=== PATIENT | male | born 1965 | race Caucasian/White ===

== ENCOUNTER 2017-12-16 08:50 | Emergency (ER) | payer OTHER, SELFPAY ==
[2017-12-16 08:54] VITALS: BP 152/96; PULSE 77; RESP 14; TEMP 36.8; O2SAT 96
--- NOTE | 2017-12-16 08:59 | W.ED.GENAD ---
Discharge Plan Disposition Patient Disposition: HOME Condition: Good Discharge Details Chief Complaint: EarProblem Clinical Impression: Acute left otitis media Primary Care Provider: Zeke De Oliveira ED Provider: Jason Conteh Home Meds and New Rx's Prescriptions: New amoxicillin 500 mg tablet 500 mg PO TID 10 Days Qty: 30 RF: 0 Continue allopurinol 100 MG tablet 200 mg PO DAILY 90 Days Qty: 180 RF: 3 disulfiram 250 MG tablet 250 mg PO DAILY 90 Days Qty: 90 RF: 3 Discharge Instructions Instructions: Otitis Media (ED) Medical Decision Making pt has had 7 days of left ear pain ,denies fevers or systemic symptoms. On exam has normal bilateral external mastoid and external auditory canals. Has normal right TM, left TM is red and bulging. Will tx with abx, advised f/u with pcp this week if not improving and return precautions given Differential Diagnosis otitis externa, otitis media HPI General Mode of arrival: ambulatory. Date/Time Provider Initiated Documentation: 12/16/17 08:51. Limitations to Documentation: no limitations. Information obtained by: patient. History of Present Illness 52 year old M presents to the emergency department with the chief complaint of left ear pain, described as moderate, with intensity rated at 5. Quality is described as aching, Patient started experiencing this day(s) (7) and it has been constant. No relieving factors improve symptom(s), No exacerbating factors reported . Patient notes no other symptoms.. Related Data Home Medications Medication Instructions Recorded Confirmed allopurinol 200 mg PO DAILY 90 Days #180 08/15/17 12/16/17 tab-cap disulfiram 250 mg PO DAILY 90 Days #90 tab-cap 08/15/17 12/16/17 amoxicillin 500 mg PO TID 10 Days #30 tab 12/16/17 Previous Rx's Medication Instructions Recorded allopurinol 200 mg PO DAILY 90 Days #180 08/15/17 tab-cap disulfiram 250 mg PO DAILY 90 Days #90 tab-cap 08/15/17 amoxicillin 500 mg PO TID 10 Days #30 tab 12/16/17 Allergies Allergy/AdvReac Type Severity Reaction Status Date / Time No Known Allergies Allergy Unverified 12/16/17 08:57 General Stated Complaint: EarProblem DONNIE: 5 Review of Systems Review of Systems All systems reviewed & are unremarkable except as noted in HPI and below Constitutional Denies chills and Denies fever(s) ENT Denies change in voice Cardiovascular Denies chest pain and Denies dyspnea Respiratory Denies dyspnea Gastrointestinal Denies abdominal pain, Denies nausea and Denies vomiting Genitourinary Denies dysuria Integumentary/Breasts Denies rash PFSH Social History Smoking/Tobacco Use Status: Never Exam Const General: no acute distress Orientation: alert HENMT Head: normal to inspection Ears: external ears normal General nose exam: external nose normal Mouth: moist mucous membranes Eyes General: appearance normal, both eyes and all related structures Neck Neck: normal visual inspection Resp Effort & Inspection: normal respiratory effort and able to speak in complete sentences Cardio Rate: regular rate Skin General skin exam: no rashes or lesions noted Neuro General: alert and oriented x3 Extrem General: normal to inspection Psych Mental Status: mental status grossly normal Course Vital Signs Temperature 36.8 C 12/16/17 08:54 Pulse 77 12/16/17 08:54 Respiratory Rate 14 12/16/17 08:54 Blood Pressure 152/96 H 12/16/17 08:54 Pulse Oximetry 96 12/16/17 08:54 Temperature 36.8 C 12/16/17 08:54 Temperature Source Temporal Artery Scan 12/16/17 08:54 Pulse 77 12/16/17 08:54 Respiratory Rate 14 12/16/17 08:54 Respiratory Effort Non-Labored 12/16/17 08:56 Blood Pressure 152/96 H 12/16/17 08:54 Blood Pressure Position Sitting 12/16/17 08:54 Pulse Oximetry 96 12/16/17 08:54 Oxygen Delivery Method Room Air 12/16/17 08:54 Oxygen Flow Rate 0 12/16/17 08:54 Pain Level 5 12/16/17 08:54
--- NOTE | 2017-12-16 09:02 | ED.GENADUL_ITS ---
Discharge Plan Disposition Patient Disposition: HOME Condition: Good Discharge Details Chief Complaint: EarProblem Clinical Impression: Acute left otitis media Primary Care Provider: Zeke De Oliveira ED Provider: Jason Conteh Home Meds and New Rx's Prescriptions: New amoxicillin 500 mg tablet 500 mg PO TID 10 Days Qty: 30 RF: 0 Continue allopurinol 100 MG tablet 200 mg PO DAILY 90 Days Qty: 180 RF: 3 disulfiram 250 MG tablet 250 mg PO DAILY 90 Days Qty: 90 RF: 3 Discharge Instructions Instructions: Otitis Media (ED) Medical Decision Making pt has had 7 days of left ear pain ,denies fevers or systemic symptoms. On exam has normal bilateral external mastoid and external auditory canals. Has normal right TM, left TM is red and bulging. Will tx with abx, advised f/u with pcp this week if not improving and return precautions given Differential Diagnosis otitis externa, otitis media HPI General Mode of arrival: ambulatory . Date/Time Provider Initiated Documentation: 12/16/17 08:51 . Limitations to Documentation: no limitations . Information obtained by: patient . History of Present Illness 52 year old M presents to the emergency department with the chief complaint of left ear pain, described as moderate, with intensity rated at 5. Quality is described as aching, Patient started experiencing this day(s) (7) and it has been constant. No relieving factors improve symptom(s), No exacerbating factors reported . Patient notes no other symptoms.. Related Data Home Medications Medication Instructions Recorded Confirmed allopurinol 200 mg PO DAILY 90 Days #180 08/15/17 12/16/17 tab-cap disulfiram 250 mg PO DAILY 90 Days #90 tab-cap 08/15/17 12/16/17 amoxicillin 500 mg PO TID 10 Days #30 tab 12/16/17 Previous Rx's Medication Instructions Recorded allopurinol 200 mg PO DAILY 90 Days #180 08/15/17 tab-cap disulfiram 250 mg PO DAILY 90 Days #90 tab-cap 08/15/17 amoxicillin 500 mg PO TID 10 Days #30 tab 12/16/17 Allergies Allergy/AdvReac Type Severity Reaction Status Date / Time No Known Allergies Allergy Unverified 12/16/17 08:57 General Stated Complaint: EarProblem DONNIE: 5 Review of Systems Review of Systems All systems reviewed & are unremarkable except as noted in HPI and below Constitutional Denies chills and Denies fever(s) ENT Denies change in voice Cardiovascular Denies chest pain and Denies dyspnea Respiratory Denies dyspnea Gastrointestinal Denies abdominal pain, Denies nausea and Denies vomiting Genitourinary Denies dysuria Integumentary/Breasts Denies rash PFSH Social History Smoking/Tobacco Use Status: Never Exam Const General: no acute distress Orientation: alert HENMT Head: normal to inspection Ears: external ears normal General nose exam: external nose normal Mouth: moist mucous membranes Eyes General: appearance normal, both eyes and all related structures Neck Neck: normal visual inspection Resp Effort & Inspection: normal respiratory effort and able to speak in complete sentences Cardio Rate: regular rate Skin General skin exam: no rashes or lesions noted Neuro General: alert and oriented x3 Extrem General: normal to inspection Psych Mental Status: mental status grossly normal Course Vital Signs Temperature 36.8 C 12/16/17 08:54 Pulse 77 12/16/17 08:54 Respiratory Rate 14 12/16/17 08:54 Blood Pressure 152/96 H 12/16/17 08:54 Pulse Oximetry 96 12/16/17 08:54 Temperature 36.8 C 12/16/17 08:54 Temperature Source Temporal Artery Scan 12/16/17 08:54 Pulse 77 12/16/17 08:54 Respiratory Rate 14 12/16/17 08:54 Respiratory Effort Non-Labored 12/16/17 08:56 Blood Pressure 152/96 H 12/16/17 08:54 Blood Pressure Position Sitting 12/16/17 08:54 Pulse Oximetry 96 12/16/17 08:54 Oxygen Delivery Method Room Air 12/16/17 08:54 Oxygen Flow Rate 0 12/16/17 08:54 Pain Level 5 12/16/17 08:54
== END 2017-12-16 09:06 | disposition home or self-care (01) ==
PROVIDERS: Emergency Provider Emergency Medicine; PCP Family Medicine
DX: H66.92 Otitis media, unspecified, left ear (principal)
CPT/HCPCS: 99283

== ENCOUNTER 2018-01-22 14:11 | Emergency (ER) | payer OTHER, SELFPAY ==
[2018-01-22] VITALS (18 sets, daily range): BP systolic 91–141; BP diastolic 77–85; PULSE 60–75; RESP 12–18; TEMP 36.6–36.7; O2SAT 95–98
--- NOTE | 2018-01-22 14:31 | W.ED.GENAD ---
Discharge Plan Disposition Patient Disposition: HOME Condition: Stable Discharge Details Chief Complaint: GenMedical Clinical Impression: Palpitations Primary Care Provider: Zeke De Oliveira ED Provider: Jason Conteh Home Meds and New Rx's Prescriptions: Continued ciprofloxacin-dexamethasone 0.3-0.1 % drops,suspension 4 drp otic (ear) Q12H Qty: 7.5 RF: 0 amoxicillin-pot clavulanate 875-125 mg tablet 1 tab PO Q12H Qty: 14 RF: 0 allopurinol 100 MG tablet 200 mg PO DAILY 90 Days Qty: 180 RF: 3 disulfiram 250 MG tablet 250 mg PO DAILY 90 Days Qty: 90 RF: 3 Discharge Instructions Instructions: Palpitations (ED) Additional Instructions: your lab work and ekg did not show any concerning findings. I have placed you on our follow up list to see a primary care provider sooner if you have worsening symptoms, chest pain/pressure or difficulty breathing return to the emergency department Medical Decision Making 52 yo former smoker comes in with cc of palpitations feeling as though his heart is pounding primarily at night with some associated shortness of breath. Denies any symptoms now, never had any chest pain or pressure. Symptoms started a week ago and has never had before. Denies fevers, travel, srugeries, no lower extremity swelling or calf pain. No tachycardia or hypoxia to suggest PE. HEART score is 2, will obtain troponin. No tearing back pain and normal fascular exam so doubt dissection at this time pt remains stable, lab work is unremarkable. No symptoms here and normal tele. Will send home on zio patch and have him f/u with pcp, return precautions given Differential Diagnosis afib, nstemi, electrolyte abnormality Lab Data Lab results reviewed: Yes I reviewed the patient's lab results. ECG Data Attestation: I personally reviewed and interpreted this ECG (s) as follows: Prior ECG tracings: not available for review Interpretation: sinus rhythm rate of 74, pr 162, qtc 419 HPI General Mode of arrival: ambulatory. Date/Time Provider Initiated Documentation: 01/22/18 14:20. Limitations to Documentation: no limitations. Information obtained by: patient. History of Present Illness 52 year old M presents to the emergency department with the chief complaint of palpitations, described as moderate, with intensity rated at 3. Patient started experiencing this week(s) (1) and it has been intermittent. No relieving factors improve symptom(s), No exacerbating factors reported . Patient did receive the following treatments prior to arrival, none Related Data Home Medications Medication Instructions Recorded Confirmed allopurinol 200 mg PO DAILY 90 Days #180 08/15/17 12/25/17 tab-cap disulfiram 250 mg PO DAILY 90 Days #90 tab-cap 08/15/17 12/25/17 amoxicillin 875 mg-potassium 1 tab PO Q12H #14 tab 12/19/17 12/19/17 clavulanate 125 mg tablet ciprofloxacin 0.3 %-dexamethasone 4 drp OTIC (EAR) Q12H #7.5 ml 12/25/17 12/25/17 0.1 % ear drops,suspension Previous Rx's Medication Instructions Recorded allopurinol 200 mg PO DAILY 90 Days #180 08/15/17 tab-cap disulfiram 250 mg PO DAILY 90 Days #90 tab-cap 08/15/17 amoxicillin 875 mg-potassium 1 tab PO Q12H #14 tab 12/19/17 clavulanate 125 mg tablet ciprofloxacin 0.3 %-dexamethasone 4 drp OTIC (EAR) Q12H #7.5 ml 12/25/17 0.1 % ear drops,suspension Allergies Allergy/AdvReac Type Severity Reaction Status Date / Time No Known Allergies Allergy Unverified 12/25/17 14:37 General Stated Complaint: GenMedical DONNIE: 3 Review of Systems Review of Systems All systems reviewed & are unremarkable except as noted in HPI and below Constitutional Denies chills, Denies fever(s) and Denies weakness Cardiovascular Denies chest pain Gastrointestinal Denies abdominal pain, Denies nausea and Denies vomiting Musculoskeletal Denies joint swelling Integumentary/Breasts Denies rash Neurologic Denies weakness Psychiatric Denies depression [facility] Social History Smoking/Tobacco Use Status: Never Exam Const General: no acute distress Orientation: alert [facility] Head: normal to inspection Ears: external ears normal General nose exam: external nose normal Mouth: moist mucous membranes Eyes General: appearance normal, both eyes and all related structures Neck Neck: normal visual inspection Resp Effort & Inspection: normal respiratory effort and able to speak in complete sentences Cardio Rate: regular rate Skin General skin exam: no rashes or lesions noted Neuro General: alert and oriented x3 Extrem General: normal to inspection Psych Mental Status: mental status grossly normal Course Vital Signs Temperature 36.6 C 01/22/18 14:23 Pulse 74 01/22/18 14:23 Respiratory Rate 16 01/22/18 14:23 Blood Pressure 141/85 H 01/22/18 14:23 Pulse Oximetry 95 01/22/18 14:23 Temperature 36.6 C 01/22/18 14:23 Temperature Source Skin 01/22/18 14:23 Pulse 74 01/22/18 14:23 Respiratory Rate 16 01/22/18 14:23 Blood Pressure 141/85 H 01/22/18 14:23 Blood Pressure Position Sitting 01/22/18 14:23 Pulse Oximetry 95 01/22/18 14:23 Oxygen Delivery Method Room Air 01/22/18 14:23 Oxygen Flow Rate 0 01/22/18 14:23 Pain Level 0 01/22/18 14:23
--- NOTE | 2018-01-22 14:34 | ED.GENADUL_ITS ---
Discharge Plan Disposition Patient Disposition: HOME Condition: Stable Discharge Details Chief Complaint: GenMedical Clinical Impression: Palpitations Primary Care Provider: Zeke De Oliveira ED Provider: Jason Conteh Home Meds and New Rx's Prescriptions: Continued ciprofloxacin-dexamethasone 0.3-0.1 % drops,suspension 4 drp otic (ear) Q12H Qty: 7.5 RF: 0 amoxicillin-pot clavulanate 875-125 mg tablet 1 tab PO Q12H Qty: 14 RF: 0 allopurinol 100 MG tablet 200 mg PO DAILY 90 Days Qty: 180 RF: 3 disulfiram 250 MG tablet 250 mg PO DAILY 90 Days Qty: 90 RF: 3 Discharge Instructions Instructions: Palpitations (ED) Additional Instructions: your lab work and ekg did not show any concerning findings. I have placed you on our follow up list to see a primary care provider sooner if you have worsening symptoms, chest pain/pressure or difficulty breathing return to the emergency department Medical Decision Making 52 yo former smoker comes in with cc of palpitations feeling as though his heart is pounding primarily at night with some associated shortness of breath. Denies any symptoms now, never had any chest pain or pressure. Symptoms started a week ago and has never had before. Denies fevers, travel, srugeries, no lower extremity swelling or calf pain. No tachycardia or hypoxia to suggest PE. HEART score is 2, will obtain troponin. No tearing back pain and normal fascular exam so doubt dissection at this time pt remains stable, lab work is unremarkable. No symptoms here and normal tele. Will send home on zio patch and have him f/u with pcp, return precautions given Differential Diagnosis afib, nstemi, electrolyte abnormality Lab Data Lab results reviewed: Yes I reviewed the patient's lab results. ECG Data Attestation: I personally reviewed and interpreted this ECG (s) as follows: Prior ECG tracings: not available for review Interpretation: sinus rhythm rate of 74, pr 162, qtc 419 HPI General Mode of arrival: ambulatory . Date/Time Provider Initiated Documentation: 01/22/18 14:20 . Limitations to Documentation: no limitations . Information obtained by: patient . History of Present Illness 52 year old M presents to the emergency department with the chief complaint of palpitations, described as moderate, with intensity rated at 3. Patient started experiencing this week(s) (1) and it has been intermittent. No relieving factors improve symptom(s), No exacerbating factors reported . Patient did receive the following treatments prior to arrival, none Related Data Home Medications Medication Instructions Recorded Confirmed allopurinol 200 mg PO DAILY 90 Days #180 08/15/17 12/25/17 tab-cap disulfiram 250 mg PO DAILY 90 Days #90 tab-cap 08/15/17 12/25/17 amoxicillin 875 mg-potassium 1 tab PO Q12H #14 tab 12/19/17 12/19/17 clavulanate 125 mg tablet ciprofloxacin 0.3 %-dexamethasone 4 drp OTIC (EAR) Q12H #7.5 ml 12/25/17 12/25/17 0.1 % ear drops,suspension Previous Rx's Medication Instructions Recorded allopurinol 200 mg PO DAILY 90 Days #180 08/15/17 tab-cap disulfiram 250 mg PO DAILY 90 Days #90 tab-cap 08/15/17 amoxicillin 875 mg-potassium 1 tab PO Q12H #14 tab 12/19/17 clavulanate 125 mg tablet ciprofloxacin 0.3 %-dexamethasone 4 drp OTIC (EAR) Q12H #7.5 ml 12/25/17 0.1 % ear drops,suspension Allergies Allergy/AdvReac Type Severity Reaction Status Date / Time No Known Allergies Allergy Unverified 12/25/17 14:37 General Stated Complaint: GenMedical DONNIE: 3 Review of Systems Review of Systems All systems reviewed & are unremarkable except as noted in HPI and below Constitutional Denies chills, Denies fever(s) and Denies weakness Cardiovascular Denies chest pain Gastrointestinal Denies abdominal pain, Denies nausea and Denies vomiting Musculoskeletal Denies joint swelling Integumentary/Breasts Denies rash Neurologic Denies weakness Psychiatric Denies depression [facility] Social History Smoking/Tobacco Use Status: Never Exam Const General: no acute distress Orientation: alert [facility] Head: normal to inspection Ears: external ears normal General nose exam: external nose normal Mouth: moist mucous membranes Eyes General: appearance normal, both eyes and all related structures Neck Neck: normal visual inspection Resp Effort & Inspection: normal respiratory effort and able to speak in complete sentences Cardio Rate: regular rate Skin General skin exam: no rashes or lesions noted Neuro General: alert and oriented x3 Extrem General: normal to inspection Psych Mental Status: mental status grossly normal Course Vital Signs Temperature 36.6 C 01/22/18 14:23 Pulse 74 01/22/18 14:23 Respiratory Rate 16 01/22/18 14:23 Blood Pressure 141/85 H 01/22/18 14:23 Pulse Oximetry 95 01/22/18 14:23 Temperature 36.6 C 01/22/18 14:23 Temperature Source Skin 01/22/18 14:23 Pulse 74 01/22/18 14:23 Respiratory Rate 16 01/22/18 14:23 Blood Pressure 141/85 H 01/22/18 14:23 Blood Pressure Position Sitting 01/22/18 14:23 Pulse Oximetry 95 01/22/18 14:23 Oxygen Delivery Method Room Air 01/22/18 14:23 Oxygen Flow Rate 0 01/22/18 14:23 Pain Level 0 01/22/18 14:23
[2018-01-22 14:49] LABS: Abs Immature Grans 0.01 k/cumm (0.0-0.09); Absolute Basophil Count 0.02 k/cumm (0.0-0.2); Absolute Eosinophil Count 0.14 k/cumm (0.0-0.7); Absolute Lymphocyte Count 2.58 k/cumm (1.2-3.4); Absolute Monocyte Count 0.61 k/cumm (0.11-0.7); Absolute Neutrophil Count 3.54 k/cumm (1.2-6.7); Basophils % 0.3; HGB 14.9 g/dL (13.5-17.5); Immature Grans % 0.1; Lymphocytes % 37.4; Mean Corp. HGB Concentration 33.1 g/dL (32.0-36.0); Mean Corpuscular Hemoglobin 29.5 pg (27.0-33.0); Mean Corpuscular Volume 89.1 fL (80-95); Mean Platelet Volume 9.4 fL (8.0-11.0); Monocytes % 8.8; Neutrophils % 51.4; Platelet Count 207 x1000/uL (130-400); RBC 5.05 m/cumm (4.50-6.00)
[2018-01-22 15:04] LABS: ALT 45 U/L (12-78); AST 20 U/L (15-37); Albumin 3.8 g/dL (3.4-5.0); Alkaline Phosphatase 45 U/L (46-116); Anion Gap 12.4 mmol/L (3-11); BUN 15 mg/dL (7-18); Bilirubin, Total 0.3 mg/dL (0.2-1.0); CO2 25.6 mmol/L (21.0-32.0); CREATININE 1.05 mg/dL (0.70-1.30); Calcium 8.8 mg/dL (8.5-10.1); Chloride 104 mmol/L (98-107); Glucose 113 mg/dL (70-100); Potassium 3.9 mmol/L (3.5-5.1); Sodium 142 mmol/L (136-145); Troponin I < 0.02 ng/mL (0.00-0.06)
--- NOTE | 2018-02-08 09:55 | ZIOP_ITS ---
DATE OF DICTATION: February 08, 2018 INDICATION: Palpitations. ANALYSIS TIME: 9 days and 5 hours. Predominant underlying rhythm is sinus rhythm. Average heart rate 81 bpm. Minimum heart rate 43 bpm. Maximum heart rate 144 bpm. No ventricular ectopy. No non-sustained VT. Rare isolated atrial ectopy. No atrial fibrillation or SVT. No significant pauses of bradyarrhythmias. Four patient-triggered events correspond to sinus rhythm with PAC's. Three diary entries with symptoms such as skipped/irregular beats correspond to sinus rhythm twice. Episode of shortness of breath and pounding correspond to sinus rhythm with atrial ectopy.
== END 2018-01-22 15:57 | disposition home or self-care (01) ==
PROVIDERS: Emergency Provider Emergency Medicine; PCP Family Medicine
DX: R00.2 Palpitations (principal)
CPT/HCPCS: 36415; 80053; 93005; 93225; 99284; 84484; 85025; 93010

== ENCOUNTER 2018-03-25 10:43 | Outpatient (CLI) | payer OTHER, SELFPAY ==
[2018-03-25 11:41] LABS: Hemoglobin A1C 5.6 % (4.5-6.2)
[2018-03-25 12:20] LABS: ALT 32 U/L (12-78); AST 16 U/L (15-37); Albumin 3.9 g/dL (3.4-5.0); Alkaline Phosphatase 43 U/L (46-116); Anion Gap 10.5 mmol/L (3-11); BUN 18 mg/dL (7-18); Bilirubin, Total 0.4 mg/dL (0.2-1.0); CO2 26.5 mmol/L (21.0-32.0); CREATININE 1.01 mg/dL (0.70-1.30); Calcium 8.9 mg/dL (8.5-10.1); Chloride 106 mmol/L (98-107); Glucose 99 mg/dL (70-100); Sodium 143 mmol/L (136-145)
[2018-03-25 12:51] LABS: HCT 45.9 % (40.0-50.0); HGB 15.2 g/dL (13.5-17.5); Mean Corp. HGB Concentration 33.1 g/dL (32.0-36.0); Mean Corpuscular Hemoglobin 29.7 pg (27.0-33.0); Mean Corpuscular Volume 89.6 fL (80-95); Mean Platelet Volume 10.8 fL (8.0-11.0); Platelet Count 188 x1000/uL (130-400); RBC 5.12 m/cumm (4.50-6.00); RBC Distribution Width 13.1 % (11.8-14.1); White Blood Cell Count 5.12 k/cumm (4.4-10.8)
[2018-03-26 09:07] LABS: Hepatitis C Ab w Rflx HCV PCR Reactive (NEGAT)
[2018-03-27 15:16] LABS: HCV RNA Detection Quantitative Undetected IU/mL (UNDECT)
== END 2018-03-25 11:03 ==
PROVIDERS: PCP Family Medicine; Visit Provider Family Medicine
DX: B19.20 Unspecified viral hepatitis C without hepatic coma (principal); K21.9 Gastro-esophageal reflux disease without esophagitis; G47.33 Obstructive sleep apnea (adult) (pediatric); R73.03 Prediabetes; R73.09 Other abnormal glucose; B18.2 Chronic viral hepatitis C; Z87.898 Personal history of other specified conditions
CPT/HCPCS: 36415; 80053; 85027; 86803; 83036; 87522

== ENCOUNTER 2019-11-25 10:29 | Outpatient (CLI) | payer OTHER, SELFPAY ==
--- NOTE | 2019-11-25 07:15 | DI.RAD_ITS ---
EXAM: XR KNEE LT 3V AP,LAT,MORTEZA CLINICAL HISTORY: left knee pain,M25.562. TECHNIQUE: 2D digital imaging was performed. COMPARISON: No exams were available for comparison FINDINGS: BONES: No acute fracture is present. No bony destructive lesion is seen. JOINTS: The knee is normally aligned. No joint effusion is seen. There are no significant degenerati ve changes. SOFT TISSUE: Normal. IMPRESSION: Normal radiographs of the left knee. DATA REPOSITORY: RADIATION DOSE DELIVERED:
== END 2019-11-25 10:49 ==
PROVIDERS: PCP Family Medicine; Visit Provider Nurse Practitioner Family
DX: M25.562 Pain in left knee (principal)
CPT/HCPCS: 73562

== ENCOUNTER 2020-03-22 19:19 | Emergency (ER) | payer OTHER, SELFPAY ==
[2020-03-22 19:24] VITALS: BP 146/105; PULSE 97; RESP 15; TEMP 36.4; O2SAT 96
--- NOTE | 2020-03-22 19:42 | W.ED.GENAD ---
Discharge Plan Disposition Patient Disposition: HOME Condition: Good Discharge Details Clinical Impression: Cellulitis of knee, left Primary Care Provider: Zeke De Oliveira ED Provider: Sixto Kan Home Meds and New Rx's Prescriptions: New clindamycin HCl 150 mg capsule 450 mg PO TID 10 Days Qty: 90 RF: 0 Continued allopurinol 100 mg tablet 200 mg PO DAILY 90 Days Qty: 180 RF: 3 disulfiram 250 mg tablet 250 mg PO DAILY Qty: 90 RF: 0 Discharge Instructions Instructions: Clindamycin (By mouth), Cellulitis (ED) Additional Instructions: At this time you do have cellulitis on the skin over your knee and there does not seem to be any evidence of infection in your knee. These are obviously very close together, so if at any point you notice worsening pain in your knee, spreading of the redness, continued fever or chills, please return immediately for reassessment at this this may demonstrate evidence of infection in the knee itself. Please take the antibiotic as directed, make sure that you are taking it with a yogurt with live cultures to help prevent any diarrhea. If you notice any worsening of your symptoms, or any new symptoms such as vomiting, diarrhea, fever, chills, shortness of breath, chest pain, numbness, weakness, or fainting , please return immediately to the emergency department for reevaluation. Please follow up with your primary care provider as soon as possible for reassessment and reevaluation. As always, it was a pleasure participating in your medical care today. Referrals: Zeke De Oliveira [Primary Care Provider] - Discharge Data Discharge Date/Time-TO BE ENTERED AT DEPARTURE: 03/22/20 21:55 Medical Decision Making 54-year-old male with past medical history of gout, obesity, hypertension, reflux, presents today for evaluation of left knee pain. Patient states that 3 days ago he felt that there was a small infected hair on his left knee, he plucks the hair, and tried to squeeze it but nothing came out. Last 24 to 48 hours he has noticed redness, pain in the skin, and mild pain with movement of the knee. He feels that the pain is more localized to the skin and not in the knee itself. He states his did note a fever at home of 100.1. He is afebrile here. He denies any trauma to the knee. He denies any injury to the knee recently. He denies any cough, chest pain, shortness of breath, numbness tingling or weakness otherwise. No other complaints at this time. Exam demonstrates erythema around the anterior aspect of the knee just proximal to the patella extending down to the proximal component of the osman. There appears to be a central infected hair follicle there. No drainage or discharge. The redness is certainly not circumferential at all. No significant pain with movement of the knee itself, the pain seems to be localized from superficial skin itself. Bedside ultrasound shows no evidence of loculated fluid collection on the anterior skin. With the patient potential subjective fever at home, there is concern for potential systemic infection. Clinically symptoms do not appear consistent with a septic joint at this time, no history of trauma. No indication for imaging. We will place a superficial needle aspiration in the anterior compartment of the knee where the follicle lives, will also attempt a joint aspiration to evaluate for infection. 7:50 PM Anterior superficial skin aspiration was performed, after incision sterile technique with an 18-gauge needle there was a small amount of blood but no evidence of purulent material at all. No evidence of abscess. Lateral joint aspiration technique was performed under sterile technique as well, however on initial attempt no fluid was obtained, repeat attempt was made with a change in angulation and on repeat attempt there was also no significant fluid obtained. On palpation of the knee itself there is no significant edema, or evidence of fluctuance at all at this time in regards to the joint itself. Will not attempt joint aspiration again as it appears to be no amount of significant fluid collection in the knee itself currently. 10 PM Laboratory work-up has returned, minimal white count of 13, no bandemia. Lactate unremarkable at 1.5, electrolytes normal. CRP elevated at 5.62. ESR is a send out secondary to the machine being down. After fluids, and an IV dose of clindamycin and Toradol the patient is feeling much better. He ambulates well without any limp at all. Symptoms at this time appear inconsistent with a septic joint and involvement with the knee joint itself, and and instead are consistent with superficial cellulitis. Patient has normal heart rate, remains afebrile, blood pressure normal. Currently he does not show evidence of systemic sepsis or a septic joint. Patient stable for discharge. Will give clindamycin to go and a prescription for clindamycin at home. I spent a long time discussing with both the patient and his importance of close monitoring of the redness, as well as signs or symptoms that would be indicative of an infected joint if these do occur. Able demonstrate verbal understanding. I have extensively reviewed the treatment plan and discharge instructions with the patient and their family. I have addressed all patient concerns at this time. The patient and family was made aware of what symptoms to monitor for that would warrant a return to the emergency department. Discussed the plan with the patient and family, they demonstrate verbal understanding and agreement with our assessment and plan at this time. The documentation in this chart was dictated using [employer] dictation software. Please excuse any dictation errors. HPI General Date/Time Provider Initiated Documentation: 03/22/20 19:20. HPI Narrative: 54-year-old male with past medical history of gout, obesity, hypertension, reflux, presents today for evaluation of left knee pain. Patient states that 3 days ago he felt that there was a small infected hair on his left knee, he plucks the hair, and tried to squeeze it but nothing came out. Last 24 to 48 hours he has noticed redness, pain in the skin, and mild pain with movement of the knee. He feels that the pain is more localized to the skin and not in the knee itself. He states his did note a fever at home of 100.1. He is afebrile here. He denies any trauma to the knee. He denies any injury to the knee recently. He denies any cough, chest pain, shortness of breath, numbness tingling or weakness otherwise. No other complaints at this time. Related Data Home Medications Medication Instructions Recorded Confirmed allopurinol 100 mg tablet 200 mg PO DAILY 90 Days #180 12/30/19 03/22/20 tab-cap disulfiram 250 mg tablet 250 mg PO DAILY #90 tab-cap 12/31/19 03/22/20 clindamycin HCl 450 mg PO TID 10 Days #90 cap 03/22/20 Previous Rx's Medication Instructions Recorded allopurinol 100 mg tablet 200 mg PO DAILY 90 Days #180 12/30/19 tab-cap disulfiram 250 mg tablet 250 mg PO DAILY #90 tab-cap 12/31/19 clindamycin HCl 450 mg PO TID 10 Days #90 cap 03/22/20 Allergies Allergy/AdvReac Type Severity Reaction Status Date / Time No Known Allergies Allergy Unverified 11/18/19 10:42 General Stated Complaint: Orthopedic DONNIE: 3 Review of Systems All systems reviewed & are unremarkable except as noted in HPI and below PFSH Medical History Bilateral foot pain Essential hypertension 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 Social History Smoking/Tobacco Use Status: Never Smoking risk assessment performed?: Yes Alcohol Intake: current Alcohol Intake frequency: a few times a week Alcohol type: beer Drug use: Never Substance use type: does not use Caregiver/Support person: No Household members: spouse Housing: house Communication Needs: Hard of Hearing Do you need help understanding health information?: Never Pets and animals: Yes Pets and animals: cat(s) and dog(s) Sexually active: Yes Current gender identity: male What is your relationship status?: How often do you talk on the phone with friends or family?: decline to answer How often do you get together with friends or relatives?: decline to answer How often do you attend sabianism or christianity services?: decline to answer Do you belong to any clubs or organized social groups?: no Panel score (0-1 are the most socially isolated patients): 1 What type of physical activity do you participate in: other Duration: decline to answer Frequency: decline to answer Nanette/Zoroastrianism: No preference Special nanette needs: No Seatbelt use: always Helmet use: Yes Helmet use: always Drive intox or ride w/intox bus van driver: No Do you feel safe in your relationship?: Yes Exam Narrative Exam Narrative: 1.Const: Well-nourished, Well-developed, appearing stated age 2.Eyes: PERRL, no conjunctival injection, and symmetrical lids. 3.ENT: Atraumatic external nose and ears. Moist MM. Neck: Symmetric, trachea midline, No thyromegaly. 4.CVS: +S1/S2, No murmurs or gallops. Peripheral pulses 2+ and equal in all extremities. Brisk capillary refill in all extremities. 5.RESP: Unlabored respiratory effort. Clear to auscultation bilaterally. No wheezes rales or rhonchi 6.GI: Soft, Nontender/Nondistended, No hepatosplenomegaly. No guarding or rebound. 7.MSK: Normocephalic/Atraumatic, Extremities w/o deformity. No cyanosis or clubbing, Normal movement of all extremities. 8.Skin: Warm, Dry. Patient's left knee demonstrates a single loculated lesion which appears to be a small previously infected hair follicle, slight erythema extending around this with mild induration and firmness. No fluctuance. Radius is about 4 cm with mild extent down the anterior tibia but on the superficial skin. No calf tenderness, swelling or edema. the redness does not travel circumferentially. No significant pain on actual movement of the knee or pain in the knee joint. No swelling in the posterior aspect of the knee. No crepitus. No pain out of proportion with movement of the knee. 9.Neuro: broadcast technician II-XII grossly intact. Sensation grossly intact, no focal neurologic deficits. 10.Psych: (AAO) x3. Appropriate mood and affect Course Vital Signs Vital signs: Vital Signs Temperature 36.4 C L 03/22/20 19:24 Pulse 97 H 03/22/20 19:24 Respiratory Rate 15 03/22/20 19:24 Blood Pressure 146/105 H 03/22/20 19:24 Pulse Oximetry 96 03/22/20 19:24 Temperature 36.4 C L 03/22/20 19:24 Temperature Source Tympanic 03/22/20 19:24 Pulse 97 H 03/22/20 19:24 Respiratory Rate 15 03/22/20 19:24 Respiratory Effort Non-Labored 03/22/20 19:24 Blood Pressure 146/105 H 03/22/20 19:24 Blood Pressure Position Sitting 03/22/20 19:24 Pulse Oximetry 96 03/22/20 19:24 Oxygen Delivery Method Room Air 03/22/20 19:24 Oxygen Flow Rate 0 03/22/20 19:24 Pain Level 2 03/22/20 19:29 Lab/Test Results Lab/Test Results: 03/22/20 19:40 Blood Blood Culture - Pending 03/22/20 19:40 Blood Blood Culture - Pending Procedures Joint Aspiration/Injection Joint Asp./Inject. 1: Time Out Performed: Yes Side of body: left Joint Aspirated: knee Ultrasound Guidance: No Skin Prep: sterile prep and drape Local Anesthetic: other anesthetic Needle Size Used: 22G Patient Tolerated Procedure: well Complications: other (no fluid collected)
[2020-03-22 20:07] LABS: Abs Immature Grans 0.03 10^3/uL (0.0-0.06); Absolute Basophil Count 0.07 10^3/uL (0.0-0.2); Absolute Eosinophil Count 0.09 10^3/uL (0.0-0.7); Absolute Lymphocyte Count 2.42 10^3/uL (1.2-3.4); Absolute Monocyte Count 1.07 10^3/uL (0.1-0.8); Absolute Neutrophil Count 9.84 10^3/uL (1.2-6.7); Basophils % 0.5; Eosinophils % 0.7; HCT 47.3 % (40.0-50.0); HGB 15.5 g/dL (13.5-17.5); Immature Grans % 0.2; Lymphocytes % 17.9; MCH 29.2 pg (27.0-33.0); MCHC 32.8 % (32.0-36.0); MCV 89.2 fL (80-95); MPV 9.5 fL (8.0-11.0); Monocytes % 7.9; Neutrophils % 72.8; Nucleated RBC 0 %; Platelet Count 238 10^3/uL (130-400); RDW 13.2 % (11.8-14.1); RDW-SD 43.2 fL; WBC 13.52 10^3/uL (4.4-10.8)
[2020-03-22] MEDS: Normal Saline 1,000 ML 1000 ML IV (20:08)
[2020-03-22] MEDS: CLINDAMYCIN 600 MG/50 ML BAG 100 MG IVPB (20:08)
[2020-03-22 20:10] VITALS: PULSE 92; O2SAT 96
[2020-03-22 20:10] LABS: Lactate 1.5 mmol/L (0.6-1.4)
[2020-03-22 20:23] LABS: C-Reactive Protein 5.62 mg/dL (0.0-0.3)
[2020-03-22 20:27] LABS: ALT 36 U/L (16-63); AST 15 U/L (15-37); Alkaline Phosphatase 54 U/L (46-116); Anion Gap 11.6 mmol/L (3-11); BUN 17 mg/dL (7-18); Bilirubin, Total 0.6 mg/dL (0.2-1.0); CO2 27.4 mmol/L (21.0-32.0); CREATININE 1.4 mg/dL (0.70-1.30); Calcium 9.2 mg/dL (8.5-10.1); Chloride 103 mmol/L (98-107); Estimated GFR 53.01 (mL/min/1.73m2); Glucose 123 mg/dL (74-106); Potassium 4.3 mmol/L (3.5-5.1); Sodium 142 mmol/L (136-145); Total Protein 7.7 g/dL (6.4-8.2)
[2020-03-22 21:05] VITALS: BP 146/80; PULSE 87; RESP 16; O2SAT 96
[2020-03-22] MEDS: Ketorolac 30 MG/ML VIAL IVP (21:05)
--- NOTE | 2020-03-22 21:58 | NUR.NOTE ---
Nursing Note: Dr Kan outlines pt's redness to left knee with date.
[2020-03-22] MEDS: Clindamycin 150 MG CAP, 12 CAPS/BTL 450 MG PO (22:07)
[2020-03-23 15:42] LABS: ESR 23 mm/hr (<or=20)
== END 2020-03-22 22:13 | disposition home or self-care (01) ==
PROVIDERS: Emergency Provider Student in an Organized Health Care Education/Training Program; PCP Family Medicine
DX: L03.116 Cellulitis of left lower limb (principal); I10 Essential (primary) hypertension
CPT/HCPCS: 20610; 80053; 85652; 87040; 96361; 96365; 96375; 99284; 83605; 85025; 86140; J1885

== ENCOUNTER 2020-03-24 18:59 | Emergency (ER) | payer OTHER, SELFPAY ==
[2020-03-24 19:03] VITALS: BP 151/98; PULSE 95; RESP 18; TEMP 36.3; O2SAT 98
--- NOTE | 2020-03-24 19:17 | ED.GENADUL_ITS ---
Discharge Plan Disposition Patient Disposition: HOME Condition: Improving Discharge Details Clinical Impression: Cellulitis of knee, left Primary Care Provider: Zeke De Oliveira ED Provider: Leeanna Leavitt Home Meds and New Rx's Prescriptions: Continued allopurinol 100 mg tablet 200 mg PO DAILY 90 Days Qty: 180 RF: 3 disulfiram 250 mg tablet 250 mg PO DAILY Qty: 90 RF: 0 clindamycin HCl 150 mg capsule 450 mg PO TID 10 Days Qty: 90 RF: 0 ibuprofen 200 mg Tablet 200 mg PO PRN PRNRF: 0 Discharge Instructions Instructions: Cellulitis (ED) Additional Instructions: Your labs are improving. The redness seems to be shrinking compared to where you are marked before. Again, there is no evidence to suggest an infection in the joint. Please take the clindamycin as prescribed. Please make sure that you are taking 450 mg of the clindamycin 3 times per day for total of 10 days. This will be 3 of the 150 mg capsules at a time. Please follow-up with primary care in 2 days for reevaluation. If you develop fever/chills, increased pain, increased swelling or other new/worsening symptoms please seek care urgently once again. Referrals: Zeke De Oliveira [Primary Care Provider] - Medical Decision Making Patient with 54-year-old gentleman presenting today for reevaluation of the cellulitis which was diagnosed in his left knee. Patient was seen here 2 days ago at which time he was started on clindamycin. Patient's been taking this appropriately. He was prescribed to taking 4 and 50 mg 3 times daily from unclear if he has been taking 1 or 3 tabs during each dose. He was noted to have an inflamed follicle over the superior aspect of the patella which was opened and drained without any purulent discharge. Multiple attempts were made at joint aspiration but no fluid was able to be collected. He states THAT he did experience some night sweats. No documented fever. States he is feeling well otherwise. He comes in today for increase comfort and reports that he has pain which is starting to walk. He states he wants the discomfort his pain does improve. However, if he is overly active the pain will increase once again. On exam patient appears nontoxic. His left knee has a focal area of erythema and swelling over the superior aspect of the knee. Dr. Kan had previously marked out the area of cellulitis and comparatively, it does appear to have clindamycin works quite well and the borders of the cellulitis has been receding. No appreciated drainage. No evidence to suggest an abscess. He does continue to have the cellulitis as previously mentioned. Full extension. Flexion is limited to approximately 90 degrees secondary to discomfort over the patella. Aside from the Patient's pain increasing and is increased difficulty with ambulation, his cellulitis appears clinically improved. Further, with his increased pain and do feel that repeat blood work would be appropriate. I did question him if the swelling is new from 2 days ago or persistent. He is unable to answer this question. If this is a concern, I do feel that repeat aspiration would be appropriate. Discussed the risk/benefits as well as expected procedural steps associated with aspiration. Voices understanding and wishes to proceed. Once again, the procedure was detailed as a dry tap. Patient is tolerated this well and it was performed in standard sterile technique. This was well away from the border of the cellulitis. Labs reviewed. Lactate remains stable. WBC is significantly downtrending from 2 days ago. CRP is also improving. Patient did have a bump in his creatinine when he was here last time, for this he was given 500 cc bolus. His creatinine does appear back to his baseline. I discussed this with the patient. He does not have any evidence at this point to suggest a infected knee joint. Rather, I feel that the continuation of his cellulitis. It does appear to be responding well to clindamycin. Again, I am not clear if the patient has been taking the have prescribed and I did discuss dosing more clearly with him. Return precautions were discussed. Advised to follow-up with primary care in 2 days for reevaluation. Strict return precautio ns were discussed. Encourage rest and elevation of his leg. Advised ibuprofen to help discomfort. All of his questions and concerns were addressed and he is in agreement this plan. HPI General Mode of arrival: ambulatory . Date/Time Provider Initiated Documentation: 03/24/20 19:15 . Limitations to Documentation: no limitations . Information obtained by: patient, RN notes reviewed and old records reviewed . History of Present Illness 54 year old M presents to the emergency department with the chief complaint of left knee pain, described as moderate, with intensity rated at 4. Quality is described as aching, and is localized to the left and lower extremity. Patient reports no radiation. Patient started experiencing this day(s) and it has been constant. Immobilization improves symptom(s), Movement worsens symptoms . Patient notes diaphoresis; denies fever/chills, loss of appetite and nausea/vomiting. Patient did receive the f ollowing treatments prior to arrival, other (clindamycin) Related Data Home Medications Medication Instructions Recorded Confirmed allopurinol 100 mg tablet 200 mg PO DAILY 90 Days #180 12/30/19 03/24/20 tab-cap disulfiram 250 mg tablet 250 mg PO DAILY #90 tab-cap 12/31/19 03/24/20 clindamycin HCl 450 mg PO TID 10 Days #90 cap 03/22/20 03/24/20 ibuprofen 200 mg PO PRN PRN 03/24/20 03/24/20 Previous Rx's Medication Instructions Recorded allopurinol 100 mg tablet 200 mg PO DAILY 90 Days #180 12/30/19 tab-cap disulfiram 250 mg tablet 250 mg PO DAILY #90 tab-cap 12/31/19 clindamycin HCl 450 mg PO TID 10 Days #90 cap 03/22/20 Allergies Allergy/AdvReac Type Severity Reaction Status Date / Time No Known Allergies Allergy Unverified 11/18/19 10:42 General Stated Complaint: Cellulitis DONNIE: 3 Review of Systems Constitutional Constitutional: Reports as per HPI, Denies chills, Denies fever(s), Denies headache(s), Reports night sweats and Denies weakness ENT Ears, Nose, Mouth, and Throat: Denies headache(s) Cardiovascular Cardiovascular: Reports as per HPI Respiratory Respiratory: Reports as per HPI Musculoskeletal Musculoskeletal: Reports as per HPI and Denies tingling Integumentary/Breasts Skin/Breast: Reports as per HPI, Reports erythema, Reports skin pain and Reports skin swelling Neurologic Neurologic: Reports as per HPI, Denies headache(s), Denies tingling, Denies paresthesias and Denies weakness [facility] Medical History Bilateral foot pain Essential hypertension ALEXANDRA (generalized anxiety disorder) WITH MIXED DEPRESSION Gastroesophageal reflux disease Gout LEFT SIDE History of alcohol abuse REPORTED 02/25/18 - DISULFIRAM IN THE WINTER & LIBERTARIAN IN THE SUMMER, LAST ALCHOL 5 MONTHS AGO Insomnia Nephrolithiasis LEFT SIDED 3 mm SEEN ON U/S 08/20/15 Obesity XOCHITL (obstructive sleep apnea) Patellofemoral disorder of left knee (08/15/17) 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 Social History Smoking/Tobacco Use Status: Never Smoking risk assessment performed?: Yes Alcohol Intake: current Alcohol Intake frequency: a few times a week Alcohol type: beer Drug use: Never Substance use type: does not use Caregiver/Support person: No Household members: spouse Housing: house Communication Needs: Hard of Hearing Do you need help understanding health information?: Never Pets and animals: Yes Pets and animals: cat(s) and dog(s) Sexually active: Yes Current gender identity: male What is your relationship status?: How often do you talk on the phone with friends or family?: decline to answer How often do you get together with friends or relatives?: decline to answer How often do you attend religion or sabianist services?: decline to answer Do you belong to any clubs or organized social groups?: no Panel score (0-1 are the most socially isolated patients): 1 What type of physical activity do you participate in: other Duration: decline to answer Frequency: decline to answer Nanette/Jew: No preference Special nanette needs: No Seatbelt use: always Helmet use: Yes Helmet use: always Drive intox or ride w/intox taxi cab driver: No Do you feel safe in your relationship?: Yes Exam Const General: cooperative, healthy appearing, comfortable, no acute distress, well developed and well groomed Nutritional Appearance: well nourished and obese Orientation: alert and awake Resp Effort & Inspection: normal respiratory effort, able to speak in complete sentences and no respiratory distress Cardio Rate: regular rate Rhythm: regular rhythm Skin General skin exam: erythema (as below) Neuro General: patient alert and patient awake Cognition: normal cognition Speech: speech normal Gait: normal gait Motor: muscle tone normal throughout Sensory Exam: no sensory deficits noted Extrem Knee images: 1. localized area of erythema. Warm to the touch. Much less than the previously outlined area, particularly distal to the area noted. Area of swelling noted across the top of the knee. Area of previously drained hair follicle was concerning for source of infection is tender but no fluctuation or induration. Psych Appearance: grossly normal and well kempt Mental Status: mental status grossly normal Speech and Movement: speech and movement normal Course Vital Signs Vital signs: Vital Signs Temperature 36.3 C L 03/24/20 19:03 Pulse 95 H 03/24/20 19:03 Respiratory Rate 18 03/24/20 19:03 Blood Pressure 151/98 H 03/24/20 19:03 Pulse Oximetry 98 03/24/20 19:03 Temperature 36.3 C L 03/24/20 19:03 Temperature Source Temporal Artery Scan 03/24/20 19:03 Pulse 95 H 03/24/20 19:03 Respiratory Rate 18 03/24/20 19:03 Blood Pressure 151/98 H 03/24/20 19:03 Blood Pressure Position Sitting 03/24/20 19:03 Pulse Oximetry 98 03/24/20 19:03 Oxygen Delivery Method Room Air 03/24/20 19:03 Oxygen Flow Rate 0 03/24/20 19:03 Pain Level 4 03/24/20 19:03 Procedures Joint Aspiration/Injection Joint Asp./Inject. 1: Time Out Performed: Yes Side of body: left Joint Aspirated: knee Ultrasound Guidance: No Skin Prep: sterile prep and drape Needle Size Used: 18G Total fluid obtained (mL): 0 Patient Tolerated Procedure: well and no complications Complications: none
--- NOTE | 2020-03-24 19:28 | NUR.NOTE ---
Nursing Note: elopement entered in error. libl
[2020-03-24 19:47] LABS: Lactate 1.5 mmol/L (0.6-1.4)
[2020-03-24 20:04] LABS: Abs Immature Grans 0.03 10^3/uL (0.0-0.06); Absolute Basophil Count 0.04 10^3/uL (0.0-0.2); Absolute Lymphocyte Count 2.33 10^3/uL (1.2-3.4); Absolute Monocyte Count 0.83 10^3/uL (0.1-0.8); Absolute Neutrophil Count 6.66 10^3/uL (1.2-6.7); Basophils % 0.4; HCT 42.9 % (40.0-50.0); Immature Grans % 0.3; Lymphocytes % 23.1; MCH 29.5 pg (27.0-33.0); MCHC 32.6 % (32.0-36.0); MCV 90.5 fL (80-95); MPV 9.5 fL (8.0-11.0); Monocytes % 8.2; Nucleated RBC 0 %; Platelet Count 234 10^3/uL (130-400); RBC 4.74 10^6/uL (4.36-5.78); RDW 13.2 % (11.8-14.1); RDW-SD 44.4 fL; WBC 10.09 10^3/uL (4.4-10.8)
[2020-03-24] MEDS: Normal Saline 500 ML 999 ML IV (20:08)
[2020-03-24 20:17] LABS: ALT 34 U/L (16-63); AST 14 U/L (15-37); Albumin 3.7 g/dL (3.4-5.0); Alkaline Phosphatase 56 U/L (46-116); Anion Gap 10.7 mmol/L (3-11); BUN 18 mg/dL (7-18); Bilirubin, Total 0.2 mg/dL (0.2-1.0); C-Reactive Protein 5.42 mg/dL (0.0-0.3); CO2 26.3 mmol/L (21.0-32.0); CREATININE 1.2 mg/dL (0.70-1.30); Chloride 106 mmol/L (98-107); Glucose 128 mg/dL (74-106); Potassium 4.3 mmol/L (3.5-5.1); Sodium 143 mmol/L (136-145); Total Protein 7.5 g/dL (6.4-8.2)
[2020-03-24 20:56] VITALS: BP 137/86; PULSE 80; RESP 16; TEMP 36.7; O2SAT 96
== END 2020-03-24 20:55 | disposition home or self-care (01) ==
PROVIDERS: Emergency Provider Physician Assistant; PCP Family Medicine
DX: L03.116 Cellulitis of left lower limb (principal); I10 Essential (primary) hypertension
CPT/HCPCS: 20610; 80053; 96360; 99284; 83605; 85025; 86140; 99283

== ENCOUNTER 2020-04-22 02:58 | Outpatient (CLI) | payer OTHER, SELFPAY ==
[2020-04-22 14:51] LABS: Calculated LDL 79 mg/dL (<100); Cholesterol 151 mg/dL (<200); HDL Cholesterol 56 mg/dL (40-60); Hemoglobin A1C 5.9 % (<5.7); Triglyceride 82 mg/dL (<150)
[2020-04-22 21:50] LABS: PSA, Screening 0.2 ng/mL (0.0-3.5)
== END 2020-04-22 02:59 | disposition home or self-care (01) ==
LOC: LBO 02:58
PROVIDERS: PCP Nurse Practitioner Family; Visit Provider Nurse Practitioner Family
DX: Z00.00 Encounter for general adult medical examination without abnormal findings (principal); E78.5 Hyperlipidemia, unspecified; Z12.5 Encounter for screening for malignant neoplasm of prostate
CPT/HCPCS: 36415; 80061; 84153; 83036

== ENCOUNTER 2020-07-19 01:20 | Outpatient (CLI) | payer OTHER, SELFPAY ==
--- NOTE | 2020-07-19 08:00 | DI.RAD_ITS ---
Exam(s) XR WRIST RT COMPL NAVICULAR EXAM: XR WRIST RT COMPL NAVICULAR CLINICAL HISTORY: Right lateral wrist pain x 5mo,M25.531. TECHNIQUE: 2D digital imaging was performed. COMPARISON: No exams were available for comparison FINDINGS: There is no evidence of fracture or dislocation. Scaphoid view is unremarkable. No significant ulna r variance. Bone density is normal. IMPRESSION: DATA REPOSITORY: RADIATION DOSE DELIVERED:
== END 2020-07-19 01:40 ==
PROVIDERS: PCP Nurse Practitioner Family; Visit Provider Nurse Practitioner Family
DX: M25.531 Pain in right wrist (principal)
CPT/HCPCS: 73110

== ENCOUNTER 2020-11-19 01:08 | Outpatient (CLI) | payer OTHER, SELFPAY ==
[2020-11-19 12:41] LABS: HCT 46.2 % (40.0-50.0); HGB 14.6 g/dL (13.5-17.5); MCH 29.6 pg (27.0-33.0); MCHC 31.6 % (32.0-36.0); MCV 93.7 fL (80-95); MPV 10.1 fL (8.0-11.0); Platelet Count 224 10^3/uL (130-400); RBC 4.93 10^6/uL (4.36-5.78); RDW 12.8 % (11.8-14.1); WBC 6.21 10^3/uL (4.4-10.8)
[2020-11-19 12:58] LABS: Hemoglobin A1C 5.8 % (<5.7)
[2020-11-19 13:01] LABS: ALT 41 U/L (16-63); AST 19 U/L (15-37); Albumin 4.1 g/dL (3.4-5.0); Alkaline Phosphatase 53 U/L (46-116); Anion Gap 5.9 mmol/L (3-11); BUN 19 mg/dL (7-18); Bilirubin, Total 0.3 mg/dL (0.2-1.0); CO2 30.1 mmol/L (21.0-32.0); CREATININE 1.2 mg/dL (0.70-1.30); Calcium 8.6 mg/dL (8.5-10.1); Chloride 107 mmol/L (98-107); Glucose 96 mg/dL (74-106); Potassium 4.9 mmol/L (3.5-5.1); Sodium 143 mmol/L (136-145); TSH (W/Ref FT4) 1.05 uIU/mL (0.36-3.74); Total Protein 7.1 g/dL (6.4-8.2); Uric Acid 6.4 mg/dL (3.5-7.2)
== END 2020-11-19 01:09 | disposition home or self-care (01) ==
LOC: LOS 01:08
PROVIDERS: PCP Nurse Practitioner Family; Visit Provider Family Medicine
DX: I10 Essential (primary) hypertension; M10.9 Gout, unspecified; R73.03 Prediabetes; M54.2 Cervicalgia
CPT/HCPCS: 36415; 80053; 85027; 83036; 84443; 84550

== ENCOUNTER 2021-01-15 13:55 | Emergency (ER) | payer OTHER, SELFPAY ==
[2021-01-15] VITALS (9 sets, daily range): BP systolic 107–121; BP diastolic 67–86; PULSE 64–85; RESP 11–20; TEMP 36.7; O2SAT 93–97
--- NOTE | 2021-01-15 14:00 | RT.EKG_ITS ---
APPROVED REPORT Exam: Resting ECG Reason for Exam: diaphoretic Patient Location: E HR:82 bpm ECG Measurements Heart Rate 82 AXIS ME 144 P 66 QRSd 97 QRS 101 QT 362 T 27 QTc 424 Conclusion Sinus rhythm...normal P axis, V-rate 60- 99 Right axis deviation...QRS axis (100,269)
--- NOTE | 2021-01-15 14:30 | DI.CT_ITS ---
Exam(s) CT HEAD WO EXAM: CT HEAD WO CLINICAL HISTORY: Headache. TECHNIQUE: Imaging Protocol: Axial computed tomography images with coronal and sagittal reformatted images were created and reviewed COMPARISON: No exams were available for comparison FINDINGS: Ventricles and Extra axial spaces: Normal in size and morphology for the patient's age. Hemorrhage: None. Cerebral parenchyma: Normal. Note is made of a partially empty sella. Midline shift: None. Brainstem/Cerebellum: Normal. Calvarium: Normal. Visualized Paranasal sinuses/Mastoids: There is mucosal thickening bilaterally in the sphenoid, ethmo id air cells and maxillary sinuses. The mastoid air cells are clear. No air-fluid levels are seen. Soft Tissues: Unremarkable. IMPRESSION: 1. No acute intracranial process. 2. Findings of paranasal sinusitis. No air-fluid levels. RADIATION DOSE DELIVERED: 751.8mGy.cm Total DLP DATA REPOSITORY: All CT scans at this facility are submitted to the National Radiology Data Registry (NRDR) Dose Index Registry (DIR) with the [employer] (A[employer]). RADIATION OPTIMIZATION: All CT scans at this facility use at least one of these dose optimization te chniques: automated exposure control; mA and/or kV adjustment per patient size (includes targeted exa ms where dose is matched to clinical indication); or iterative reconstruction.
--- NOTE | 2021-01-15 14:33 | DI.RAD_ITS ---
Exam(s) XR CHEST 1V IN DI DEPT EXAM: XR CHEST 1V IN DI DEPT CLINICAL HISTORY: Cough, fever TECHNIQUE: 2D digital imaging was performed of the chest. One image was obtained. An AP view was ob tained. COMPARISON: No exams were available for comparison FINDINGS: MEDIASTINUM: Normal. HEART: Normal. PULMONARY VASCULATURE: Normal. LUNGS: Clear. There is a rounded opacity overlying the right 8th rib which may represent a nipple sha malinda. PLEURAL SPACE: No pleural effusion or pneumothorax. BONE:Within normal limits for the patient's age. OTHER FINDINGS:Normal. IMPRESSION: 1. No acute pulmonary findings. 2. Rounded opacity overlying the right 8th rib which may represent a nipple shadow. A repeat frontal view of the chest with nipple markers is recommended. Incidental Findings DATA REPOSITORY: RADIATION DOSE DELIVERED:
--- NOTE | 2021-01-15 14:37 | ED.GENADUL_ITS ---
Discharge Plan Disposition Patient Disposition: HOME Condition: Improving Discharge Details Chief Complaint: RespSymp Clinical Impression: COVID-19 Primary Care Provider: Lorie Salazar ED Provider: Jerald Stubbs Home Meds and New Rx's Prescriptions: Continued escitalopram oxalate 20 mg tablet 20 mg PO DAILY Qty: 90 RF: 4 allopurinol 100 mg tablet 200 mg PO DAILY 90 Days Qty: 180 RF: 3 ypqhzpxln-DUP-RM-acetaminophen 7.5-60-30-1,000 mg/30 mL Liquid RF: 0 No Action disulfiram 250 mg tablet 250 mg PO DAILY PRNRF: 0 Discharge Instructions Instructions: COVID-19 (Coronavirus Disease 2019) (ED), COVID-19: Slow the Coronavirus Spread (ED) Additional Instructions: Continue small, frequent sips of fluids to maintain hydration. You are being discharged with a pulse oximeter. You may use this to check your home levels of oxygen. This should be performed in a warm room at rest. Observe reading for 30 to 60 seconds to identify the most common measurement. Return to see regular doctor if your resting oxygenation drops below 90% and is continued with separate reading 10 minutes later. Tylenol and/or ibuprofen as needed for aches, pains or fever. You may benefit from vitamin D3 2000 international units daily, vitamin C 1 g twice a day, zinc 220 mg/day. Return to the ER for any concerns. Medical Decision Making This is a 55-year-old male who presents from home with 5 to 6 days of dry cough, subjective fever and chills, generalized malaise and weakness. He also endorses mild headache and sinus pressure. He is vital signs are normal and exam is reassuring. Broad differential diagnosis considered including viral syndrome, dehydration, pneumonitis, sinusitis. Patient had screening laboratories, chest x-ray, COVID-19 test, CT scan of the head performed. Patient given Tylenol and fluids. Diagnostics: Chemistries show reassuring electrolytes, BUN 19 creatinine 1.2. White blood cell count 7, hematocrit 47, platelets 191. COVID-19 PCR positive. Chest x-ray no airspace consolidation or acute disease. CT scan of the head without acute intracranial findings. Consistent with viral syndrome, COVID-19. Discussed home management with the patient. We will provide him with a pulse oximeter. He is stable and appropriate for discharge. HPI General Mode of arrival: ambulatory . Date/Time Provider Initiated Documentation: 01/15/21 13:57 . Limitations to Documentation: no limitations . Information obtained by: patient . History of Present Illness 55 year old M presents to the emergency department with the chief complaint of Cough, fever, chills, described as mild and moderate, Quality is described as dull, and is localized to the chest. Patient reports no radiation. Patient started experiencing this day(s) and it has been intermittent. No relieving factors improve symptom(s), No exacerbating factors reported . Patient notes cough, diaphoresis, fever/chills, headaches, loss of appetite and malaise; denies chest pain, shortness of breath and syncope. Patient did receive the following treatments prior to arrival, none Related Data Home Medications Medication Instructions Recorded Confirmed allopurinol 100 mg tablet 200 mg PO DAILY 90 Days #180 12/30/19 01/15/21 tab-cap disulfiram 250 mg tablet 250 mg PO DAILY PRN tab-cap 04/09/20 01/15/21 escitalopram oxalate 20 mg tablet 20 mg PO DAILY #90 tab 04/09/20 01/15/21 [id number]-NKJ-FU-acetaminophen ml 01/15/21 Previous Rx's Medication Instructions Recorded allopurinol 100 mg tablet 200 mg PO DAILY 90 Days #180 12/30/19 tab-cap escitalopram oxalate 20 mg tablet 20 mg PO DAILY #90 tab 04/09/20 Allergies Allergy/AdvReac Type Severity Reaction Status Date / Time No Known Allergies Allergy Unverified 01/15/21 14:07 General Stated Complaint: RespSymp DONNIE: 3 Review of Systems Narrative: See HPI. 8 systems reviewed and otherwise negative PFSH All Active Problems (Updated 01/15/21 @ 15:54 by Jerald Stubbs MD) COVID-19 (Acute) Prediabetes (Chronic) XOCHITL (obstructive sleep apnea) (Chronic) Essential hypertension (Chronic) Major depressive disorder (Chronic) Generalized anxiety disorder (Chronic) Gastroesophageal reflux disease (Chronic) Insomnia (Chronic) Gout (Chronic) Obesity (Chronic) History of alcohol abuse (Chronic) Sensorineural hearing loss of both ears (Chronic) Medical History Alcohol use disorder Hyperlipidemia Nephrolithiasis Viral hepatitis C Successfully treated with Interferon Surgical History S/P colonoscopy Family History Mother Lupus (systemic lupus erythematosus) Father , in his 60s from some type of aneurysm Aneurysm Sister Lupus (systemic lupus erythematosus) Daughter Multiple sclerosis Maternal Grandfather No problems noted. Maternal Grandmother No problems noted. Paternal Grandfather No problems noted. Paternal Grandmother No problems noted. Social History Smoking/Tobacco Use Status: Former Tobacco Use tobacco type: cigarettes Quit Date: 02/05/99 Pack-years: 57 Tobacco: How many years used: 20 Smoking risk assessment performed?: Yes Alcohol Intake: former Drug use: Never Substance use type: does not use Caregiver/Support person: No Household members: spouse Housing: house Communication Needs: Hard of Hearing Do you need help understanding health information?: Never Pets and animals: Yes Pets and animals: cat(s) and dog(s) Sexually active: Yes Current gender identity: male What is your relationship status?: How often do you talk on the phone with friends or family?: decline to answer How often do you get together with friends or relatives?: decline to answer How often do you attend jain or scientology services?: decline to answer Do you belong to any clubs or organized social groups?: no Panel score (0-1 are the most socially isolated patients): 1 What type of physical activity do you participate in: other Duration: decline to answer Frequency: decline to answer Nanette/Roman Catholic: No preference Special nanette needs: No Seatbelt use: always Helmet use: Yes Helmet use: always Drive 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 Pleasant, well groomed, interactive. HEAD: Normocephalic, atraumatic ENT: Mucous membranes moist, oropharynx unremarkable, External ear exam unremarkable EYES: PERRL, EOMI NECK: Full ROM, no ARPIT, no menigismus CHEST/RESP: Nontender, clear to auscultation bilateral, no wheeze/rhonchi/rales CARDIOVASCULAR: RRR, no murmur, rub irena. 2+ Rad pulse bilateral ABDOMEN: Soft, nontender, no mass. +Bowel sounds EXT: Full ROM, no edema, no rash Neuro: Grossly normal neurologic exam, conversant, interactive. Psych: Speech fluent, thoughts congruent, affect normal Course Vital Signs Vital signs: Vital Signs Temperature 36.7 C 01/15/21 14:03 Pulse 85 01/15/21 14:03 Respiratory Rate 18 01/15/21 14:03 Blood Pressure 121/86 01/15/21 14:03 Pulse Oximetry 97 01/15/21 14:03 Temperature 36.7 C 01/15/21 14:03 Temperature Source Temporal Artery Scan 01/15/21 14:03 Pulse 85 01/15/21 14:03 Respiratory Rate 18 01/15/21 14:03 Respiratory Effort 01/15/21 14:09 Blood Pressure 121/86 01/15/21 14:03 Blood Pressure Position Sitting 01/15/21 14:03 Pulse Oximetry 97 01/15/21 14:03 Oxygen Delivery Method Room Air 01/15/21 14:03 Oxygen Flow Rate 0 01/15/21 14:03 Pain Level 1 01/15/21 14:03
[2021-01-15] MEDS: Normal Saline 1,000 ML 1000 ML IV (14:51)
[2021-01-15 15:06] LABS: Source Nasal/Nares
[2021-01-15 15:09] LABS: ALT 27 U/L (16-63); AST 18 U/L (15-37); Albumin 3.9 g/dL (3.4-5.0); Alkaline Phosphatase 42 U/L (46-116); Anion Gap 11.6 mmol/L (3-11); BUN 19 mg/dL (7-18); Bilirubin, Total 0.3 mg/dL (0.2-1.0); CO2 25.4 mmol/L (21.0-32.0); CREATININE 1.2 mg/dL (0.70-1.30); Calcium 9.2 mg/dL (8.5-10.1); Chloride 101 mmol/L (98-107); Glucose 111 mg/dL (74-106); Potassium 4.1 mmol/L (3.5-5.1); Sodium 138 mmol/L (136-145); Total Protein 7.8 g/dL (6.4-8.2)
[2021-01-15 15:50] LABS: Abs Immature Grans 0.01 10^3/uL (0.0-0.06); Absolute Basophil Count 0.02 10^3/uL (0.0-0.2); Absolute Eosinophil Count 0.02 10^3/uL (0.0-0.7); Absolute Lymphocyte Count 1.12 10^3/uL (1.2-3.4); Absolute Neutrophil Count 5.46 10^3/uL (1.2-6.7); Basophils % 0.3; Eosinophils % 0.3; HCT 47.6 % (40.0-50.0); HGB 15.5 g/dL (13.5-17.5); Immature Grans % 0.1; Lymphocytes % 15.3; MCH 29.5 pg (27.0-33.0); MCHC 32.6 % (32.0-36.0); MCV 90.7 fL (80-95); MPV 9.6 fL (8.0-11.0); Monocytes % 9.5; Neutrophils % 74.5; Nucleated RBC 0 %; Platelet Count 191 10^3/uL (130-400); RBC 5.25 10^6/uL (4.36-5.78); RDW 12.9 % (11.8-14.1); RDW-SD 43.1 fL; WBC 7.33 10^3/uL (4.4-10.8)
[2021-01-15 15:51] LABS: COVID-19 PCR POSITIVE (Negative)
--- NOTE | 2021-01-15 16:15 | DI.VRAD_ITS ---
PROCEDURE INFORMATION: Exam: CT Head Without Contrast Exam date and time: 01/15/2021 2:42 PM Age: 55 years old Clinical indication: Pain; Headache TECHNIQUE: Imaging protocol: Computed tomography of the head without contrast. COMPARISON: No relevant prior studies available. FINDINGS: Brain: Normal. No hemorrhage. Unremarkable white matter. No mass effect. Cerebral ventricles: No ventriculomegaly. Paranasal sinuses: Multifocal mucosal thickening in the sphenoidal , bilateral anterior and right posterior ethmoidal air cells. Mild mucosal thickening in the bilateral maxillary sinuses. Mastoid air cells: Mastoid air cells are clear. Bones/joints: Unremarkable. No acute fracture. Soft tissues: Unremarkable. Other findings: There is a partial empty sella. IMPRESSION: No acute intracranial abnormality. Dictated and Authenticated by: Meek Yepez MD. Ordering:YOLANDA Marques MD
--- NOTE | 2021-01-15 16:38 | DI.VRAD_ITS ---
PROCEDURE INFORMATION: Exam: XR Chest Exam date and time: 01/15/2021 3:56 PM Age: 55 years old Clinical indication: Cough TECHNIQUE: Imaging protocol: XR of the chest. Views: 1 view. COMPARISON: No relevant prior studies available. FINDINGS: Lungs: No consolidation. Pleural spaces: No pleural effusion. No pneumothorax. Heart/Mediastinum: No cardiomegaly. Bones/joints: Unremarkable. IMPRESSION: No acute findings. Dictated and Authenticated by: Meek Yepez MD. Ordering:YOLANDA Marques MD
== END 2021-01-15 17:39 | disposition home or self-care (01) ==
PROVIDERS: Emergency Provider Emergency Medicine; PCP Nurse Practitioner Family
DX: U07.1 COVID-19 (principal); R61 Generalized hyperhidrosis; R05.1 Acute cough; R50.9 Fever, unspecified; R51.9 Headache, unspecified
CPT/HCPCS: 36415; 80053; 87635; 93005; 96360; 99284; 70450; 71045; 85025; 93010

== ENCOUNTER 2021-01-22 09:18 | Emergency (ER) | payer OTHER, SELFPAY ==
[2021-01-22 09:24] VITALS: BP 138/83; PULSE 75; RESP 16; TEMP 36.6; O2SAT 97
--- NOTE | 2021-01-22 09:41 | ED.GENADUL_ITS ---
Discharge Plan Disposition Patient Disposition: HOME Condition: Stable Discharge Details Clinical Impression: Cellulitis of knee, right Primary Care Provider: Lorie Salazar ED Provider: Nilesh Stark Home Meds and New Rx's Prescriptions: New clindamycin HCl 150 mg capsule 450 mg PO TID 10 Days Qty: 90 RF: 0 Continued disulfiram 250 mg tablet 250 mg PO PRN PRNRF: 0 [id number]-KDJ-LK-acetaminophen 7.5-60-30-1,000 mg/30 mL Liquid RF: 0 allopurinol 100 mg tablet 200 mg PO HS RF: 0 escitalopram oxalate 20 mg tablet 20 mg PO HS RF: 0 Discharge Instructions Instructions: Cellulitis (ED) Additional Instructions: Tetanus status was updated today. It would appear as though you were developing a localized mild cellulitis. Clindamycin as directed. Rest, elevate, warm compresses every 2 hours for 20 minutes. Please watch for new or worsening symptoms and return to the ER for any concerns. Lastly, I recommend reaching out your primary care provider on Sunday to discuss your ER visit and need for outpatient reevaluation. 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 Denies any obvious trauma but does state that he noticed a small abrasion and he does wear dirty, sweaty kneepads. He appears well, nontoxic, afebrile. No evidence of septic joint. This does appear superficial along the anterior aspect of his knee likely stemming from the abrasion. There is no active drainage, induration or fluctuance. Does not appear to be a septic bursitis. When reviewing previous records, patient appeared to tolerate and respond well to clindamycin. I see no clear indication to initiate IV access, obtain routine laboratory values, or IV antibiotics. Given his symptoms have been present for 24 hours, mild in nature, I do believe initiating oral clindamycin therapy is reasonable. Strict discharge and return precautions provided. Tetanus status updated today. This documentation was generated using [employer] system, please disregard any oddities of phrase or misspellings. Medical Records Medical records reviewed: Yes I reviewed the patient's medical records. HPI General Mode of arrival: ambulatory . Date/Time Provider Initiated Documentation: 01/22/21 09:19 . Limitations to Documentation: no limitations . Information obtained by: patient . 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 Patient states that he noticed a small abrasion a couple of days ago, he does wear sweaty-dirty kneepads at work and wonders if this could attribute to his infection. Patient states a similar episode nearly a year ago but he waited longer last time. He is presenting early in this pro gression to seek treatment before symptoms get worse. He denies any fever, rash elsewhere on his body, numbness, tingling, weakness. He reports that the pain is mild slightly worse bending of the knee or bearing weight. He reports the pain does not radiate in any direction. He denies pain or swelling of his calf. He is unsure of his tetanus status. He reports that the area on the anterior aspect of his knee was draining purulent fluid but he squeezed it all out and now there is no longer any drainage. He states that he has recently lost 40 pounds, begin eating healthy and running regularly. Related Data Home Medications Medication Instructions Recorded Confirmed disulfiram 250 mg tablet 250 mg PO PRN PRN tab-cap 04/09/20 01/22/21 [id number]-WF-acetaminophen ml 01/15/21 allopurinol 200 mg PO HS 01/22/21 01/22/21 clindamycin HCl 450 mg PO TID 10 Days #90 cap 01/22/21 escitalopram oxalate 20 mg PO HS 01/22/21 01/22/21 Previous Rx's Medication Instructions Recorded clindamycin HCl 450 mg PO TID 10 Days #90 cap 01/22/21 Allergies Allergy/AdvReac Type Severity Reaction Status Date / Time No Known Allergies Allergy Unverified 01/22/21 09:27 General Stated Complaint: Cellulitis DONNIE: 3 Review of Systems Constitutional Constitutional: Denies fever(s) and Denies weakness Musculoskeletal Musculoskeletal: Denies deformity, Reports arthralgias, Denies numbness, Denies stiffness and Denies tingling Integumentary/Breasts Skin/Breast: Reports erythema Neurologic Neurologic: Denies numbness, Denies tingling and Denies weakness PFSH All Active Problems (Updated 01/22/21 @ 09:45 by MAE Modi) COVID-19 (Acute) Cellulitis of knee, right (Acute) Prediabetes (Chronic) XOCHITL (obstructive sleep apnea) (Chronic) Essential hypertension (Chronic) Major depressive disorder (Chronic) Generalized anxiety disorder (Chronic) Gastroesophageal reflux disease (Chronic) Insomnia (Chronic) Gout (Chronic) Obesity (Chronic) History of alcohol abuse (Chronic) Sensorineural hearing loss of both ears (Chronic) Medical History Alcohol use disorder Hyperlipidemia Nephrolithiasis Viral hepatitis C Successfully treated with Interferon Surgical History S/P colonoscopy Family History Mother Lupus (systemic lupus erythematosus) Father , in his 60s from some type of aneurysm Aneurysm Sister Lupus (systemic lupus erythematosus) Daughter Multiple sclerosis Maternal Grandfather No problems noted. Maternal Grandmother No problems noted. Paternal Grandfather No problems noted. Paternal Grandmother No problems noted. Social History Smoking/Tobacco Use Status: Former Tobacco Use tobacco type: cigarettes Quit Date: 02/05/99 Pack-years: 57 Tobacco: How many years used: 20 Smoking risk assessment performed?: Yes Alcohol Intake: former Drug use: Never Substance use type: does not use Caregiver/Support person: No Household members: spouse Housing: house Communication Needs: Hard of Hearing Do you need help understanding health information?: Never Pets and animals: Yes Pets and animals: cat(s) and dog(s) Sexually active: Yes Current gender identity: male What is your relationship status?: How often do you talk on the phone with friends or family?: decline to answer How often do you get together with friends or relatives?: decline to answer How often do you attend yazidi or episcopalian services?: decline to answer Do you belong to any clubs or organized social groups?: no Panel score (0-1 are the most socially isolated patients): 1 What type of physical activity do you participate in: other Duration: decline to answer Frequency: decline to answer Nanette/Yazidism: No preference Special nanette needs: No Seatbelt use: always Helmet use: Yes Helmet use: always Drive 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 ride w/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 Do you feel safe at home: Yes Do you feel safe in your relationship?: Yes Exam Const General: cooperative, healthy appearing, comfortable and no acute distress Orientation: alert and awake [facility] Head: normal to inspection, normocephalic and atraumatic Eyes General: appearance normal, both eyes and all related structures Conjunctivae: conjunctivae normal Neck Neck: normal visual inspection, trachea midline and supple Resp Effort & Inspection: normal respiratory effort and able to speak in complete sentences Cardio Rate: regular rate Rhythm: regular rhythm Skin General skin exam: erythema Neuro General: patient alert, patient awake, moves all extremities and no focal motor deficits Cognition: normal cognition Speech: speech normal Gait: normal gait Motor: muscle tone normal throughout Sensory Exam: no sensory deficits noted Extrem General: full ROM and capillary refill normal Knee images: 1. Abrasion-wound. No drainage, fluctuance. 2. Localized warmth, erythema, minimal discomfort. There is no deformity, induration or fluctuance. Normal dorsalis pedal pulse. Calf unremarkable. Negative Homans' sign. Psych Appearance: grossly normal Mental Status: mental status grossly normal Course Vital Signs Vital signs: Vital Signs Temperature 36.6 C 01/22/21 09:24 Pulse 75 01/22/21 09:24 Respiratory Rate 16 01/22/21 09:24 Blood Pressure 138/83 01/22/21 09:24 Pulse Oximetry 97 01/22/21 09:24 Temperature 36.6 C 01/22/21 09:24 Temperature Source Skin 01/22/21 09:24 Pulse 75 01/22/21 09:24 Respiratory Rate 16 01/22/21 09:24 Respiratory Effort 01/22/21 09:34 Blood Pressure 138/83 01/22/21 09:24 Blood Pressure Position Sitting 01/22/21 09:24 Pulse Oximetry 97 01/22/21 09:24 Oxygen Delivery Method Room Air 01/22/21 09:24 Oxygen Flow Rate 0 01/22/21 09:24 Pain Level 3 01/22/21 09:24 Comment 01/22/21 09:24
== END 2021-01-22 10:24 | disposition home or self-care (01) ==
LOC: ER 09:47
PROVIDERS: Emergency Provider Physician Assistant; PCP Nurse Practitioner Family
DX: L03.115 Cellulitis of right lower limb (principal); S80.211A Abrasion, right knee, initial encounter; X58.XXXA Exposure to other specified factors, initial encounter
CPT/HCPCS: 90471; 99284; 99283

== ENCOUNTER 2022-02-17 01:11 | Outpatient (CLI) | payer OTHER, SELFPAY ==
[2022-02-17 12:33] LABS: Anion Gap 8.1 mmol/L (3-11); BUN 26 mg/dL (7-18); CO2 26.9 mmol/L (21.0-32.0); CREATININE 1.1 mg/dL (0.70-1.30); Calcium 9.2 mg/dL (8.5-10.1); Calculated LDL 91 mg/dL (<100); Chloride 105 mmol/L (98-107); Cholesterol 169 mg/dL (<200); Estimated GFR 79.28 (mL/min/1.73m2); Glucose 121 mg/dL (74-106); HDL Cholesterol 54 mg/dL (40-60); Potassium 4.1 mmol/L (3.5-5.1); Sodium 140 mmol/L (136-145); Triglyceride 122 mg/dL (<150)
[2022-02-17 23:10] LABS: Estimated Average Glucose 123 mg/dL; Hemoglobin A1C 5.9 % (<5.7)
== END 2022-02-17 01:12 | disposition home or self-care (01) ==
LOC: LOS 01:11
PROVIDERS: PCP Nurse Practitioner Family; Visit Provider Nurse Practitioner Family
DX: I10 Essential (primary) hypertension (principal); E78.5 Hyperlipidemia, unspecified; R73.03 Prediabetes
CPT/HCPCS: 36415; 80048; 80061; 83036

== ENCOUNTER 2022-04-11 03:34 | Outpatient (CLI) | payer OTHER, SELFPAY ==
[2022-04-11 12:19] LABS: HGB 15.1 g/dL (13.5-17.5); MCH 29.3 pg (27.0-33.0); MCHC 32.8 % (32.0-36.0); MCV 89 fL (80-95); MPV 10.7 fL (8.0-11.0); Platelet Count 214 10^3/uL (130-400); RBC 5.15 10^6/uL (4.36-5.78); RDW-SD 43.1 fL; WBC 6.46 10^3/uL (4.4-10.8)
[2022-04-11 12:40] LABS: Anion Gap 10.7 mmol/L (3-11); BUN 27 mg/dL (7-18); CO2 26.3 mmol/L (21.0-32.0); Calcium 9.8 mg/dL (8.5-10.1); Chloride 105 mmol/L (98-107); Estimated GFR 88.88 (mL/min/1.73m2); Glucose 96 mg/dL (74-106); Potassium 4.4 mmol/L (3.5-5.1); Sodium 142 mmol/L (136-145); TSH (W/Ref FT4) 1.12 uIU/mL (0.36-3.74)
== END 2022-04-11 03:35 | disposition home or self-care (01) ==
LOC: LOS 03:34
PROVIDERS: PCP Nurse Practitioner Family; Visit Provider Nurse Practitioner Family
DX: E66.9 Obesity, unspecified (principal); G47.33 Obstructive sleep apnea (adult) (pediatric); R53.83 Other fatigue
CPT/HCPCS: 36415; 80048; 85027; 84443

== ENCOUNTER 2023-06-21 07:56 | Outpatient (CLI) | payer OTHER, SELFPAY ==
[2023-06-21 13:06] LABS: Anion Gap 10.2 mmol/L (3-11); BUN 20 mg/dL (7-18); CO2 25.8 mmol/L (21.0-32.0); CREATININE 1.4 mg/dL (0.70-1.30); Calcium 9.2 mg/dL (8.5-10.1); Chloride 105 mmol/L (98-107); Estimated GFR 58.99 (mL/min/1.73m2); Glucose 97 mg/dL (74-106); Potassium 4.3 mmol/L (3.5-5.1); Sodium 141 mmol/L (136-145)
[2023-06-21 13:14] LABS: Hemoglobin A1C 5.6 % (<5.7)
[2023-06-21 21:03] LABS: PSA, Screening 0.3 ng/mL (<=3.5)
== END 2023-06-21 07:57 | disposition home or self-care (01) ==
LOC: LOS 07:56
PROVIDERS: PCP Nurse Practitioner Family; Visit Provider Nurse Practitioner Family
DX: Z00.00 Encounter for general adult medical examination without abnormal findings (principal); Z12.5 Encounter for screening for malignant neoplasm of prostate
CPT/HCPCS: 36415; 80048; 84153; 83036

== ENCOUNTER 2024-04-28 07:22 | Outpatient (CLI) | payer OTHER, SELFPAY ==
[2024-04-28 12:36] LABS: Anion Gap 8.9 mmol/L (3-11); BUN 24 mg/dL (7-18); CO2 26.1 mmol/L (21.0-32.0); CREATININE 1.1 mg/dL (0.70-1.30); Calcium 9.2 mg/dL (8.5-10.1); Calculated LDL 56 mg/dL (<100); Chloride 108 mmol/L (98-107); Cholesterol 144 mg/dL (<200); Glucose 95 mg/dL (74-106); HDL Cholesterol 46 mg/dL (>or=40); Potassium 4.2 mmol/L (3.5-5.1); Sodium 143 mmol/L (136-145); Triglyceride 210 mg/dL (<150)
[2024-04-28 13:13] LABS: Uric Acid 5.8 mg/dL (3.5-7.2)
== END 2024-04-28 07:23 | disposition home or self-care (01) ==
LOC: LOS 07:22
PROVIDERS: PCP Nurse Practitioner Family; Referring Provider Nurse Practitioner Family; Visit Provider Nurse Practitioner Family
DX: G47.33 Obstructive sleep apnea (adult) (pediatric) (principal); M10.9 Gout, unspecified; Z23 Encounter for immunization; F33.9 Major depressive disorder, recurrent, unspecified; F41.1 Generalized anxiety disorder; E66.9 Obesity, unspecified
CPT/HCPCS: 36415; 80048; 80061; 84550